=== PATIENT | female | born 1930 | race Caucasian/White ===

== ENCOUNTER → 2017-11-20 | Outpatient (CLI) | payer MEDICARE, OTHER ==
[~2017-11-20] MED LIST: BAYER CHEWABLE81 MG PO; CALCIUM 600 +1 EAC1 PO; CELEXA20 MG PO; COUMADIN 2.5MG2.5 M1 PO; LUNESTA3 MG PO; MAGNESIUM OXID400 MG PO; OMEGA-31000 M1 PO; PROBIOTIC1 EAC1 PO
== END ==
LOC: M.RAD 09:55
DX: Z12.31 Encounter for screening mammogram for malignant neoplasm of breast (principal)

== ENCOUNTER → 2017-11-26 | Outpatient (CLI) | payer MEDICARE, OTHER | LOC: M.RAD 11-22 09:31 | DX: N63.10 Unspecified lump in the right breast, unspecified quadrant (principal); R92.8 Other abnormal and inconclusive findings on diagnostic imaging of breast; I48.0 Paroxysmal atrial fibrillation ==

== ENCOUNTER → 2018-05-28 | Outpatient (CLI) | payer MEDICARE, OTHER | LOC: M.RAD 05-07 14:37 | DX: N63.10 Unspecified lump in the right breast, unspecified quadrant (principal); R92.8 Other abnormal and inconclusive findings on diagnostic imaging of breast ==